=== PATIENT | male | born 1945 | race Caucasian/White ===

== ENCOUNTER 2017-01-02 13:04 | Emergency (ER) | payer BC ==
--- NOTE | 2017-01-02 13:37 | Emergency Department Record ---
History of Present Illness - General Chief complaint: Male Urogenital Problem Stated complaint: testicular pain/BLEEDING Time Seen by Provider: 01/02/17 13:36 Source: Patient, Family Mode of Arrival: Wheelchair Limitations: No limitations - History of Present Illness Initial comments: The patient is here due to due to his sister noticing blood on his underwear when she was cleaning him up after a bath today. She is not sure where it came from. The patient denies any AP, rectal pain, or dysuria but states his urine is very strong. He recently has Lithotrypsy done for some kidney stones. The patient has a half-way problem with ambulating and just sits in a chair at home and does not move. He did fall onto his buttocks 2 days ago but did not get hurt. The sister thinks his scrotum could be an issue due to it being mildly erythematous presently. MD Complaint: Other Onset/Timin Location: Left testicle Radiation: None Severity: Mild Severity scale (1-10): 2 Quality: Burning Consistency: Constant Improves with: None Worsens with: None Reports: Blood in urine - Related Data Home Medications Medication Instructions Recorded Confirmed Last Taken Metformin HCl [Glucophage] 500 mg PO BID 02/17/15 01/02/17 01/02/17 Lisinopril [Lisinopril] 2.5 mg PO DAILY 01/02/17 01/02/17 01/02/17 Lovastatin [Lovastatin] 10 mg PO DAILY 01/02/17 01/02/17 01/02/17 Metoprolol Tartrate [Metoprolol 25 mg PO DAILY 01/02/17 01/02/17 01/02/17 Tartrate] Previous Rx's Medication Instructions Recorded Ciprofloxacin HCl [Cipro] 1 tab PO Q12H #20 tab 01/02/17 Allergies Allergy/AdvReac Type Severity Reaction Status Date / Time NO KNOWN DRUG ALLERGY Allergy no Uncoded 01/02/17 13:31 allergies Travel Screening - Travel/Exposure Within Last 30 Days Have you traveled within the last 30 days?: No Review of Systems Constitutional: Denies: Chills, Fever Eyes: Denies: Eye discharge ENT: Denies: Congestion, Other Respiratory: Denies: Dyspnea Past Medical History - SOCIAL HISTORY Smoking Status: Never smoker Alcohol Use: None Drug Use: None - RESPIRATORY Hx Respiratory Disorders: Yes Hx Sleep Apnea: Yes Hx of CPAP: Yes - CARDIOVASCULAR Hx Cardio Disorders: Yes Hx Irregular Heartbeat: Yes - NEURO Hx Neuro Disorders: Yes Hx TIA: Yes - GI Hx GI Disorders: No - Hx Genitourinary Disorders: Yes Hx Kidney Stones: Yes - ENDOCRINE Hx Endocrine Disorders: Yes Hx Diabetes: Yes - MUSCULOSKELETAL Hx Musculoskeletal Disorders: No - PSYCH Hx Psych Problems: No - HEMATOLOGY/ONCOLOGY Hx Hematology/Oncology Disorders: No Family Medical History Any Significant Family History?: No Physical Exam - General General Appearance: Alert, Oriented x3, Cooperative, No acute distress - Head Head exam: Atraumatic, Normocephalic, Normal inspection - Eye Eye exam: Normal appearance, PERRL - Neck Neck exam: Normal inspection, Full ROM. negative: Tenderness - Respiratory Respiratory exam: Normal lung sounds bilaterally. negative: Respiratory distress - Cardiovascular Cardiovascular Exam: Regular rate, Normal rhythm, Normal heart sounds - GI/Abdominal GI/Abdominal exam: Soft, Normal bowel sounds. negative: Guarding, Rebound, Rigid, Tenderness - Rectal Rectal exam: Heme (-) stool, Normal rectal tone. negative: Black stool, Bloody stool, Fecal impaction, Hemorrhoids, Tenderness - exam: Circumcision, Testicular tenderness (L very mildly but no edema.), Other (There are no skin lesions causing bleeding at this time.). negative: Normal inspection (The scrotum is very mildly inflamed from yeast. The patient has a yeast infection thru his lower abdominal pannus and genital area. His sister states she does not clean him there during there bath and the patient is supposed to clean himself in his privates but he does not do that.), Scrotal swelling, Urethral discharge Course Vital Signs 01/02/17 13:23 Temperature 98.1 F Pulse Rate 87 Respiratory 20 Rate Blood Pressure 124/73 Pulse Ox 99 - Reevaluation(s) Reevaluation #1: The patient is doing very well. He denies any pain or discomfort. I did explain the results to the patient and sister. There does not seem to be any ureter stone or hydro so we will discharge the patient to home on an oral antibiotic. 01/02/17 16:02 Medical Decision Making - Data Complexity MDM Data: Labs Ordered and/or Reviewed, X-Ray Ordered and/or Reviewed - Lab Data Result diagrams: 01/02/17 14:14 01/02/17 14:14 - Radiology Data Radiology results: Report reviewed (CT: No hydro or ureter stone) Disposition Disposition: Discharge Clinical Impression: UTI (urinary tract infection) Qualifiers: Urinary tract infection type: site unspecified Hematuria presence: with hematuria Qualified Code(s): N39.0 - Urinary tract infection, site not specified Disposition: Home, Self-Care Condition: (1) Good Instructions: Urinary Tract Infection in Men (ED) Additional Instructions: Please drink plenty of fluids and take the Cipro as directed. Please see your PCP early next week for recheck. Please correct the hygiene issues that we discussed and use your home antifungal powder as directed. Return to the ER for any pain, fever, or vomiting. Prescriptions: Ciprofloxacin HCl [Cipro] 1 tab PO Q12H #20 tab Forms: Patient Portal Access Time of Disposition: 16:06
[2017-01-02] MEDS ORDERED: 0.9 % SODIUM CHLORIDE 1,000 ML BAG IV ONE (13:50)
[2017-01-02 14:19] LABS: BASO % 0.2 % (0-6); EOS % 1.1 % (0-6); GRAN % 77.2 % (47-80); HEMATOCRIT 40.3 % (42.0-52.0); LYMPH % 12.8 % (16-45); MEAN CORPUSCULAR HEMOGLOBIN 27.4 pg (27-33); MEAN CORPUSCULAR HGB CONC 32.3 g/dl (32-36); MEAN PLATELET VOLUME 10.3 fl (7.4-10.4); MONO % 8.7 % (0-9); PLATELET COUNT 294 K/uL (130-400); RED BLOOD COUNT 4.74 M/uL (4.40-5.70); RED CELL DISTRIBUTION WIDTH 14.1 % (11.5-14.5)
[2017-01-02 14:21] LABS: URINE APPEARANCE CLEAR; URINE BILIRUBIN NEGATIVE (NEGATIVE); URINE BLOOD LARGE (NEGATIVE); URINE COLOR YELLOW; URINE GLUCOSE (UA) NEGATIVE (NEGATIVE); URINE KETONE NEGATIVE (NEGATIVE); URINE LEUKOCYTE ESTERASE MODERATE (NEGATIVE); URINE NITRITE NEGATIVE (NEGATIVE); URINE UROBILINOGEN 0.2 E.U./dL (0.20 - 1.00)
[2017-01-02 14:30] LABS: URINE EPITHELIAL CELLS NONE SEEN (FEW)
[2017-01-02 14:31] LABS: URINE BACTERIA 1+
[2017-01-02 14:33] LABS: ANION GAP 12.5 (7-16); CARBON DIOXIDE 26.5 mmol/L (22-30); CREATININE 1.6 mg/dL (0.66-1.25)
[2017-01-02] MEDS ORDERED: CIPROFLOXACIN HCL 500 MG TABLET PO ONE (14:41)
[2017-01-02] MEDS ORDERED: CIPROFLOXACIN LACTATE/D5W 400 MG in DEXTROSE 1 BAG IVPB ONE (14:43)
== END 2017-01-02 17:04 | disposition home or self-care (01) ==
LOC: ER 13:04
DX: N39.0 Urinary tract infection, site not specified (principal); R31.0 Gross hematuria; B37.49 Other urogenital candidiasis; E11.9 Type 2 diabetes mellitus without complications; Z79.84 Long term (current) use of oral hypoglycemic drugs; I10 Essential (primary) hypertension
CPT/HCPCS: 74176; 80048; 81001; 85025; 96365; 96366; 99284; J7030

== ENCOUNTER 2017-05-31 14:08 | Observation (INO) | payer BC ==
[2017-05-31 15:18] LABS: HEMATOCRIT 40.6 % (42.0-52.0); HEMOGLOBIN 13.5 gm/dl (14.0-18.0); MEAN CELL VOLUME 83.7 fl (81-97); MEAN CORPUSCULAR HEMOGLOBIN 27.8 pg (27-33); MEAN CORPUSCULAR HGB CONC 33.3 g/dl (32-36); MEAN PLATELET VOLUME 11.3 fl (7.4-10.4); PLATELET COUNT 269 K/uL (130-400); RED BLOOD COUNT 4.85 M/uL (4.40-5.70); RED CELL DISTRIBUTION WIDTH 14.5 % (11.5-14.5); WHITE BLOOD COUNT W/O DIFF 14.2 K/uL (4.2-12.2)
--- NOTE | 2017-05-31 15:26 | Emergency Department Record ---
History of Present Illness - General Chief Complaint: Fall Injury Stated Complaint: FALL INJURY Time Seen by Provider: 05/31/17 14:24 Source: Patient, Family Mode of Arrival: Ambulatory Limitations: Physical limitation - History of Present Illness Initial Comments: pt fell and could not get back up. pt is severely .deconditioned. pt has fallen twice in the last 2 days. pt has a hx of freq falls due to deconditioning. pt states he has pain in his l hip Complaint: Fall Onset/Timin -: Hour(s) Fall From: Standing When Fall Occurred: 4-6 hours [employer] Fall Witnessed: No Place Fall Occurred: Home Loss of Consciousness: None Prolonged Down Time?: Yes Symptoms Prior to Fall: None Location - Extremities: Left: Thigh Severity: Moderate Severity scale (1-10): 3 Quality: Aching Associated Symptoms: Weakness - Aly Coma Scale Eye Response: (4) Open spontaneously Motor Response: (6) Obeys commands Verbal Response: (5) Oriented Aly Total: 15 - Related Data Allergies Allergy/AdvReac Type Severity Reaction Status Date / Time NO KNOWN DRUG ALLERGY Allergy no Uncoded 05/31/17 14:31 allergies Travel Screening - Travel/Exposure Within Last 30 Days Have you traveled within the last 30 days?: No - Travel/Exposure Within Last Year Have you traveled outside the [place] in the last year?: No - Additonal Travel Details Have you been exposed to anyone with a communicable illness?: No - Travel Symptoms Symptom Screening: None Review of Systems Reviewed: No additional complaints except as noted below Constitutional: Reports: As per HPI. Denies: Chills, Fever, Malaise, Night sweats, Weakness, Weight change Eyes: Reports: As per HPI. Denies: Eye discharge, Eye pain, Photophobia, Vision change ENT: Reports: As per HPI. Denies: Congestion, Dental pain, Ear pain, Epistaxis , Hearing loss, Throat pain Respiratory: Reports: As per HPI. Denies: Cough, Dyspnea, Hemoptysis, Stridor, Wheezes Cardiovascular: Reports: As per HPI. Denies: Arrhythmia, Chest pain, Dyspnea on exertion, Edema, Murmurs, Orthopnea, Palpitations, Paroxysmal nocturnal dyspnea, Rheumatic Fever, Syncope Endocrine: Reports: As per HPI. Denies: Fatigue, Heat or cold intolerance, Polydipsia, Polyuria Gastrointestinal: Reports: As per HPI. Denies: Abdominal pain, Constipation, Diarrhea, Hematemesis, Hematochezia, Melena, Nausea, Vomiting Genitourinary: Reports: As per HPI. Denies: Dysuria, Frequency, Hematuria, Incontinence, Retention, Testicular pain, Testicular mass, Urgency Musculoskeletal: Reports: As per HPI. Denies: Arthralgia, Back pain, Gout, Joint swelling, Myalgia, Neck pain Skin: Reports: As per HPI. Denies: Bruising, Change in color, Change in hair/ nails, Lesions, Pruritus, Rash Neurological: Reports: As per HPI. Denies: Abnormal gait, Confusion, Headache, Numbness, Paresthesias, Seizure, Tingling, Tremors, Vertigo, Weakness Psychiatric: Reports: As per HPI. Denies: Anxiety, Auditory hallucinations, Depression, Homicidal thoughts, Suicidal thoughts, Visual hallucinations Hematological/Lymphatic: Reports: As per HPI. Denies: Anemia, Blood Clots, Easy bleeding, Easy bruising, Swollen glands Past Medical History - SOCIAL HISTORY Smoking Status: Never smoker Alcohol Use: None Drug Use: None - RESPIRATORY Hx Respiratory Disorders: Yes Hx Sleep Apnea: Yes Hx of CPAP: Yes - CARDIOVASCULAR Hx Cardio Disorders: Yes Hx Irregular Heartbeat: Yes - NEURO Hx Neuro Disorders: Yes Hx TIA: Yes - GI Hx GI Disorders: No - Hx Genitourinary Disorders: Yes Hx Kidney Stones: Yes - ENDOCRINE Hx Endocrine Disorders: Yes Hx Diabetes: Yes - MUSCULOSKELETAL Hx Musculoskeletal Disorders: No Comment:: deconditioning - PSYCH Hx Psych Problems: No - HEMATOLOGY/ONCOLOGY Hx Hematology/Oncology Disorders: No Family Medical History Any Significant Family History?: Yes Physical Exam - General General Appearance: Alert, Oriented x3, Cooperative, Mild distress - Head Head exam: Normal inspection - Eye Eye exam: Normal appearance, PERRL, EOMI Pupils: Normal accommodation - ENT ENT exam: Normal exam, Mucous membranes moist, Normal external ear exam, Normal orophraynx Ear exam: Normal external inspection. negative: External canal tenderness Nasal Exam: Normal inspection. negative: Discharge, Sinus tenderness Mouth exam: Normal external inspection, Tongue normal Teeth exam: Normal inspection. negative: Dental caries Throat exam: Normal inspection. negative: Tonsillar erythema, Tonsillar exudate - Neck Neck exam: Normal inspection, Full ROM. negative: Tenderness - Respiratory Respiratory exam: Normal lung sounds bilaterally. negative: Respiratory distress - Cardiovascular Cardiovascular Exam: Regular rate, Normal rhythm, Normal heart sounds - GI/Abdominal GI/Abdominal exam: Soft, Normal bowel sounds. negative: Tenderness - Rectal Rectal exam: Deferred - exam: Deferred - Extremities Extremities exam: Normal inspection, Full ROM, Normal capillary refill. negative: Tenderness - Back Back exam: Reports: Normal inspection, Full ROM. Denies: Muscle spasm, Rash noted, Tenderness - Neurological Neurological exam: Alert, CN II-XII intact, Normal gait, Oriented X3 - Psychiatric Psychiatric exam: Normal affect, Normal mood - Skin Skin exam: Dry, Intact, Normal color, Warm Course Vital Signs 05/31/17 14:15 Temperature 98.5 F Pulse Rate 56 L Respiratory 18 Rate Blood Pressure 141/72 Pulse Ox 98 Medical Decision Making - Lab Data Result diagrams: 05/31/17 13:55 05/31/17 13:55 Lab Results 05/31/17 Range/Units 14:41 POC Glucose 130 H (70-110) mg/dL Disposition Disposition: Admit Clinical Impression: Severe muscle deconditioning, Frequent falls UTI (urinary tract infection) Qualifiers: Urinary tract infection type: urethritis Qualified Code(s): N34.2 - Other urethritis Disposition: Still a Patient at [facility] Decision to Admit: Admit from ER Decision to Admit Date: 05/31/17 Decision to Admit Time: 18:02 Forms: Patient Portal Access Quality - Quality Measures Quality Measures: N/A - Blood Pressure Screening Does Patient Have Any of the Following: Active Dx of HTN Blood Pressure Classification: Hypertensive Reading Systolic Measurement: 141 Diastolic Measurement: 72 Screening for High Blood Pressure: Patient Exclusion, Hx of HTN [[id number]]
[2017-05-31 15:29] LABS: ALB/GLOB RATIO 1.3 (1.1-1.8); ALBUMIN 4.3 gm/dL (3.5-5.0); ALKALINE PHOSPHATASE 75 U/L (38-126); ALT/SGPT 43 U/L (21-72); ANION GAP 9.8 (7-16); AST/SGOT 44 U/L (17-59); BILIRUBIN,TOTAL 0.88 mg/dL (0.2-1.3); BLOOD UREA NITROGEN 16 mg/dL (9-20); CARBON DIOXIDE 27.2 mmol/L (22-30); CREATINE PHOSPHOKINASE 898 U/L (55-170); CREATININE 1.2 mg/dL (0.66-1.25); EST GLOMERULAR FILTRATION RATE > 60 ml/min; GLUCOSE,RANDOM 137 mg/dL (70-110); TOTAL PROTEIN 7.6 gm/dL (6.3-8.2)
[2017-05-31 17:43] LABS: URINE APPEARANCE SL CLOUDY; URINE BILIRUBIN NEGATIVE (NEGATIVE); URINE BLOOD LARGE (NEGATIVE); URINE COLOR YELLOW; URINE GLUCOSE (UA) NEGATIVE (NEGATIVE); URINE KETONE TRACE (NEGATIVE); URINE LEUKOCYTE ESTERASE MODERATE (NEGATIVE); URINE NITRITE NEGATIVE (NEGATIVE); URINE UROBILINOGEN 0.2 E.U./dL (0.20 - 1.00)
[2017-05-31 17:51] LABS: URINE BACTERIA 2+; URINE RBC 21 - 35 (NONE SEEN); URINE SQUAMOUS EPITHELIAL CELL 0 - 2 /hpf; URINE WBC >50 (0-2/hpf); URINE YEAST 2+
[2017-05-31] MEDS ORDERED: CIPROFLOXACIN LACTATE/D5W 400 MG/200 ML BAG IVPB ONE (17:57)
[2017-05-31] MEDS: 0.9 % SODIUM CHLORIDE 1000ML 1,000 ML IV PRN (18:27)
[2017-05-31] MEDS ORDERED: FLU VAC QS 2017-18 (INPT, 6MO+) 60MCG/0.5ML IM ONE (19:11)
[2017-05-31] MEDS ORDERED: 0.9 % SODIUM CHLORIDE 1000ML 1,000 ML IV PRN (19:11)
[2017-05-31] MEDS ORDERED: CIPROFLOXACIN LACTATE/D5W 400 MG/200 ML BAG IVPB SCH (19:11)
[2017-05-31] MEDS: ACETAMINOPHEN 500 MG TABLET PO PRN (20:42)
[2017-06-01] MEDS: 0.9 % SODIUM CHLORIDE 1000ML 1,000 ML IV PRN (01:48)
--- NOTE | 2017-06-01 05:56 | History & Physical ---
History of Present Illness - Date of Service Date of Service for History & Physical: 06/01/17 - History of Present Illness Admitting Diagnosis: uti, frequent falls, severe deconditioning History of Present Illness: 71 yo male admitted for deconditioning and UTI. PMHx of frequent falls, type 2 DM, HTN, h/o renal stones, and obesity. Patient presented to our ED by EMS after a fall at home. States he stood up to walk from the kitchen to the living room. He began to feel dizzy and fell side ways. He states his sister had come over and contacted EMS. Upon presentation , VSS. WBC 14.2, neut 81, glucose 137, creatine kinase 898. UA: + blood, mod leuks, 2+ bacteria. Urine culture pending. Hip xray: NAP. Patient was started on IVFs and IV Cipro for UTI. Admitted for further medical management. 06/01/17- History obtained from patient who is A&O to person, place and date. He states he feels well this morning. Continues to feel pretty weak. Denies dizziness, lightheadedness, fever, chills, cough, dysuria, abdominal pain, constipation, diarrhea, joint pain, headache, cp, sob, or decreased appetite. He admits to some LBP since his fall, though states he typically has some of this. He's tolerating meals. States he's using the urinal as he's not strong enough to ambulate to the rest room. Typically uses a walker at home. Has had [facility] services, though nursing states patient failed this as he was not participating. Patient lives alone though it sounds like he has a very supportive family. He reports h/o renal stones, s/p lithotripsy x 5. Dr. Negron is his urologist. Patient is retired. Denies any recent hospitalizations. According to nursing staff, family is interested in prison care facility for patient. PCP: Dr. Balderrama Travel Screening - Travel/Exposure Within Last 30 Days Have you traveled within the last 30 days?: No - Travel/Exposure Within Last Year Have you traveled outside the [place] in the last year?: No - Additonal Travel Details Have you been exposed to anyone with a communicable illness?: No - Travel Symptoms Symptom Screening: None Review of Systems Constitutional: Reports: As per HPI, Weakness. Denies: Chills, Fever, Malaise, Night sweats, Weight change Eyes: Reports: As per HPI. Denies: Eye discharge, Eye pain, Photophobia, Vision change ENT: Reports: As per HPI. Denies: Congestion, Dental pain, Ear pain, Epistaxis , Hearing loss, Throat pain Respiratory: Reports: As per HPI. Denies: Cough, Dyspnea, Hemoptysis, Stridor, Wheezes Cardiovascular: Reports: As per HPI. Denies: Arrhythmia, Chest pain, Dyspnea on exertion, Edema, Murmurs, Orthopnea, Palpitations, Paroxysmal nocturnal dyspnea, Rheumatic Fever, Syncope Endocrine: Reports: As per HPI. Denies: Fatigue, Heat or cold intolerance, Polydipsia, Polyuria Gastrointestinal: Reports: As per HPI. Denies: Abdominal pain, Constipation, Diarrhea, Hematemesis, Hematochezia, Melena, Nausea, Vomiting Genitourinary: Reports: As per HPI. Denies: Dysuria, Frequency, Hematuria, Incontinence, Retention, Testicular pain, Testicular mass, Urgency Musculoskeletal: Reports: As per HPI, Back pain (low, chronic). Denies: Arthralgia, Gout, Joint swelling, Myalgia, Neck pain Skin: Reports: As per HPI. Denies: Bruising, Change in color, Change in hair/ nails, Lesions, Pruritus, Rash Neurological: Reports: As per HPI. Denies: Abnormal gait, Confusion, Headache, Numbness, Paresthesias, Seizure, Tingling, Tremors, Vertigo, Weakness Psychiatric: Reports: As per HPI. Denies: Anxiety, Auditory hallucinations, Depression, Homicidal thoughts, Suicidal thoughts, Visual hallucinations Hematological/Lymphatic: Reports: As per HPI. Denies: Anemia, Blood Clots, Easy bleeding, Easy bruising, Swollen glands Past Medical History - SOCIAL HISTORY Smoking Status: Never smoker Alcohol Use: None Drug Use: None - RESPIRATORY Hx Respiratory Disorders: Yes Hx Sleep Apnea: Yes Hx of CPAP: Yes - CARDIOVASCULAR Hx Cardio Disorders: Yes Hx Irregular Heartbeat: Yes - NEURO Hx Neuro Disorders: Yes Hx TIA: Yes - GI Hx GI Disorders: Yes Hx Reflux: Yes (takes otc med, omeprazole) - Hx Genitourinary Disorders: Yes Hx Kidney Stones: Yes (lithotripsy) Hx UTI: Yes - ENDOCRINE Hx Endocrine Disorders: Yes Hx Diabetes: Yes (oral med) - MUSCULOSKELETAL Hx Musculoskeletal Disorders: No Comment:: pt does not move, sits at home - PSYCH Hx Psych Problems: No - HEMATOLOGY/ONCOLOGY Hx Hematology/Oncology Disorders: No Family Medical History Any Significant Family History?: Yes Hx Heart Disease: Father, Mother H&P Meds/Allergies - Allergies Allergies: Allergies Allergy/AdvReac Type Severity Reaction Status Date / Time NO KNOWN DRUG ALLERGY Allergy no Uncoded 05/31/17 14:31 allergies - Active Medications Active Medications: Current Medications Acetaminophen (Tylenol 500mg Tab) 1,000 mg PO Q6H PRN PRN Reason: PAIN/TEMP Last Admin: 05/31/17 20:42 Dose: 1,000 mg Sodium Chloride () 1,000 mls @ 125 mls/hr IV .Q8H PRN PRN Reason: LARGE VOLUME IV Last Admin: 06/01/17 01:48 Dose: 125 mls/hr Sodium Chloride () 1,000 mls @ 125 mls/hr IV .Q8H PRN PRN Reason: LARGE VOLUME IV Ciprofloxacin Lactate (Cipro) 400 mg in 200 mls @ 200 mls/hr IVPB Q12H [facility] Stop: 06/06/17 06:01 Lisinopril (Zestril) 2.5 mg PO DAILY [facility] Metformin HCl (Glucophage Ir) 500 mg PO DAILYWM [facility] Metoprolol Tartrate (Lopressor) 25 mg PO DAILY [facility] Simvastatin (Zocor) 5 mg PO QHS [facility] Physical Exam - Vital Signs Vital Signs: Vital Signs - Last 24 Hrs Temp Pulse Resp BP Pulse Ox 05/31/17 20:48 60 16 05/31/17 20:00 98.3 F 75 20 121/58 97 05/31/17 19:05 98.8 F 83 20 131/68 96 - General General Appearance: Alert, Oriented x3, Cooperative, No acute distress Limitations: Physical limitation - Head Head exam: Atraumatic, Normocephalic, Normal inspection - Eye Eye exam: Normal appearance, PERRL, EOMI Pupils: Normal accommodation - ENT ENT exam: Normal exam, Mucous membranes moist, Normal external ear exam, Normal orophraynx Ear exam: Normal external inspection. negative: External canal tenderness Nasal Exam: Normal inspection. negative: Discharge, Sinus tenderness Mouth exam: Normal external inspection, Tongue normal Teeth exam: Normal inspection. negative: Dental caries Throat exam: Normal inspection. negative: Tonsillar erythema, Tonsillar exudate - Neck Neck exam: Normal inspection, Full ROM. negative: Tenderness - Respiratory Respiratory exam: Normal lung sounds bilaterally. negative: Respiratory distress - Cardiovascular Cardiovascular Exam: Regular rate, Normal rhythm, Normal heart sounds - GI/Abdominal GI/Abdominal exam: Soft, Normal bowel sounds. negative: Tenderness - Rectal Rectal exam: Deferred - exam: Deferred - Extremities Extremities exam: Normal inspection, Full ROM, Normal capillary refill. negative: Tenderness - Back Back exam: Reports: Normal inspection. Denies: CVA tenderness (R), CVA tenderness (L), Muscle spasm, Paraspinal tenderness, Rash noted, Tenderness - Neurological Neurological exam: Alert, CN II-XII intact, Normal gait, Oriented X3 - Psychiatric Psychiatric exam: Normal affect, Normal mood - Skin Skin exam: Dry, Intact, Normal color, Warm Results - Labs Result Diagrams: 06/01/17 06:15 05/31/17 13:55 VTE H&P Assessment - Risk for VTE Risk for VTE: Yes Risk Level: Moderate Risk Assessment Date: 06/01/17 Risk Assessment Time: 09:00 VTE Orders Placed or Will Be Placed: Yes Plan - Inpatient Certification Inpatient Certification: Admit to inpatient care: Based on my medical assessment, after consideration of patient's risk factors (age, co-morbidities and patient presenting symptoms and acuity), I expect that this patient will remain in the hospital greater than or equal to two midnights and that the services needed warrant inpatient care because: Patient Risk Factors: [weakness, s/p fall, elevated cr kinase, low back pain, UTI, decreased ambulation] Estimated length of stay: [3 nights] The patient may reasonably be expected to be discharged or transferred to a hospital within 96 hours after admission to [facility]. Services needed: [IVF, IV antibiotics, assistance with ambulation, PT/OT eval, lab monitoring] Post hospital care (if known): [moth exterminator care vs. rehab facility] I certify that my determination is in accordance with my understanding of Medicare requirements for reasonable and necessary inpatient services. 06/01/17 08:55 - Detailed Diagnosis and Plan (1) UTI (urinary tract infection) Current Visit: Yes Status: Acute Qualifiers: Urinary tract infection type: urethritis Qualified Code(s): N34.2 - Other urethritis Base Code: N39.0 - URINARY TRACT INFECTION, SITE NOT SPECIFIED Comment: : UA: mod leuks, blood, 2+ bacteria - afebrile - wbc normalized - urine culture pending - IVF - IV Cipro (2) Severe muscle deconditioning Current Visit: Yes Status: Acute Base Code: R29.898 - OTH SYMPTOMS AND SIGNS INVOLVING THE MUSCULOSKELETAL SYSTEM Comment: 06/01/17- lack of phy activity vs. infection vs. other? - IV Cipro for UTI - Urine culture pending - PT/OT eval - IVF to help with re hydration - social work consult- determine proper placement for patient- [facility] vs. LTC. (3) DVT prophylaxis Current Visit: Yes Status: Acute Base Code: [id number] - Comment: 06/01/17- low-mod risk. SCD's WIB (4) Frequent falls Current Visit: Yes Status: Acute Base Code: R29.6 - REPEATED FALLS Comment : 06/01/17: Infection vs. muslce deconditioning vs. other? - IV Cipro for UTI - Urine culture pending - PT/OT eval - IVF to help with re hydration (5) DNR (do not resuscitate) Current Visit: Yes Status: Acute Base Code: Z66 - DO NOT RESUSCITATE Comment: 06/01/17- pt is DNR (6) Diabetes Current Visit: Yes Status: Acute Base Code: E11.9 - TYPE 2 DIABETES MELLITUS WITHOUT COMPLICATIONS Comment: 06/01/17- continue home meds - monitor BS prior to meals
[2017-06-01] MEDS: CIPROFLOXACIN LACTATE/D5W 400 MG/200 ML BAG IVPB SCH ×2 (06:19→18:03)
[2017-06-01 06:32] LABS: BASO % 0.5 % (0-6); EOS % 2.6 % (0-6); GRAN % 63.6 % (47-80); HEMATOCRIT 34.3 % (42.0-52.0); HEMOGLOBIN 11.4 gm/dl (14.0-18.0); LYMPH % 23.3 % (16-45); MEAN CELL VOLUME 84.7 fl (81-97); MEAN CORPUSCULAR HEMOGLOBIN 28.1 pg (27-33); MEAN CORPUSCULAR HGB CONC 33.2 g/dl (32-36); MEAN PLATELET VOLUME 10.6 fl (7.4-10.4); PLATELET COUNT 216 K/uL (130-400); RED BLOOD COUNT 4.05 M/uL (4.40-5.70); RED CELL DISTRIBUTION WIDTH 14.4 % (11.5-14.5); WHITE BLOOD COUNT W/O DIFF 8.1 K/uL (4.2-12.2)
[2017-06-01] MEDS: ACETAMINOPHEN 500 MG TABLET PO PRN ×2 (07:53→18:07)
[2017-06-01] MEDS: METFORMIN 500 MG TABLET PO SCH (08:42)
[2017-06-01] MEDS ORDERED: 0.9 % SODIUM CHLORIDE 1000ML 1,000 ML IV PRN (09:03)
[2017-06-01] MEDS: LISINOPRIL 5 MG TABLET PO SCH (09:05)
[2017-06-01] MEDS: METOPROLOL TART 25 MG TABLET PO SCH (09:06)
[2017-06-01] MEDS ORDERED: METOPROLOL TART 25 MG TABLET PO SCH (10:00)
[2017-06-01] MEDS ORDERED: SIMVASTATIN 5 MG TABLET PO SCH (22:00)
--- NOTE | 2017-06-01 22:12 | RADIOLOGY REPORT ---
EXAM: HIP,UNILAT, 2-3 VIEW LEFT HISTORY: PATIENT FELL TODAY, LEFT HIP PAIN. TECHNIQUE: Three views. COMPARISON: None. FINDINGS: No left hip fracture seen. No destructive lesion seen. Left hip joint space is fairly well maintained. The bones are diffusely osteopenic. There is no pelvic fracture identified. The right hip joint space is unremarkable and symmetric with the left. There are arthritic changes in the SI joints bilaterally. IMPRESSION: 1. NO FRACTURE OR ACUTE OSSEOUS ABNORMALITY. 2. BONES ARE DIFFUSELY OSTEOPENIC. 3. ARTHRITIC CHANGES IN THE SI JOINTS. JOB NUMBER: [id number] [facility]
[2017-06-01] MEDS: SIMETHICONE 80 MG TAB.CHEW PO SCH ×2 (22:13→22:17)
[2017-06-02] MEDS: ACETAMINOPHEN 500 MG TABLET PO PRN ×2 (05:07→15:08)
[2017-06-02] MEDS: CIPROFLOXACIN LACTATE/D5W 400 MG/200 ML BAG IVPB SCH (06:05)
[2017-06-02] MEDS: METOPROLOL TART 25 MG TABLET PO SCH (09:30)
[2017-06-02] MEDS: LISINOPRIL 5 MG TABLET PO SCH (09:30)
[2017-06-02] MEDS: SIMETHICONE 80 MG TAB.CHEW PO SCH ×4 (09:30→22:19)
[2017-06-02] MEDS: METFORMIN 500 MG TABLET PO SCH (09:36)
--- NOTE | 2017-06-02 09:45 | Rehab Evaluation ---
Patient Information - Patient Information Diagnosis: UTI, frequent falls, severe deconditioning Ordered Treatment: OT Evaluate and Treat Status: Initial Evaluation Surgery: No Past Medical/Surgical Hx: PAST MEDICAL/SURGICAL HISTORY Past Surgical History fatty tumor removed from left shoulder lithotripsy x5 PMH - Respiratory Hx Respiratory Disorders Yes Hx Sleep Apnea Yes Hx of CPAP Yes PMH - Cardiovascular Hx Cardiovascular Disorders Yes Hx Irregular Heartbeat Yes Hx Transient Ischemic Attacks Yes (TIA) PMH - Neuro Hx Neurological Disorders Yes Hx Transient Ischemic Attacks Yes (TIA) PMH - GI Hx Gastrointestinal Disorders Yes Hx Gastroesophageal Reflux Yes: takes otc med, omeprazole PMH - Hx Genitourinary Disorders Yes Hx Kidney Stones Yes: lithotripsy Hx Urinary Tract Infection Yes PMH - Endocrine Hx Endocrine Disorders Yes Hx Diabetes Yes: oral med PMH - Musculoskeletal Hx Musculoskeletal Disorders No Comment: pt does not move, sits at home PMH - Psych Hx Psychiatric Problems No PMH - Hematology/Oncology Hx Hematology/Oncology No Disorders Premorbid Status: Detail (Pt lives alone in a 1 story house, 5-6 steps with handrailing and a ramp at the entrance. Pt has a walk in shower with a seat and grab bars, an elevated "larger" toilet seat with grab bars and usually ambulates with a 2 wheeled walker. He has an aid come 3 days each week to assist him with showering and dressing, he is able to prepare meals in the microwave. Helping hands completes home mgmt and his sister does his shopping.) Social History: Detail (Pt reports his sister, December lives next door.) Precautions: [place], Fall, Other (isolation) - Time With Patient Total Time Spent With Patient (Min): 30 Treatment Procedures: Detail (OT eval low complexity) Subjective Information - Subjective Information Per Patient Objective Data - Pain Pain Present: No - Mental Status Patient Orientation: Oriented x3 - Visual Perception Appears within normal limits for therapeutic activities (Pt wears glasses at all times.) - ROM Not within normal limits (Nikita shoulder flexion limited to approx. 90 degrees, nikita elbow, wrist and hand AROM WNL.) - Strength/Tone Not within normal limits (Nikita shoulder flexion 4/5, nikita elbow, wrist and hand strength 5/5) - Coordination Appears within normal limits for therapeutic activities - Bed Mobility Needs Assist (Sit to supine with max assist to lift legs into bed, pt able to use trapeze to partially scoot up in bed.) - Transfers Needs Assist (Max assist x 2 for sit to stand to walker.) - Balance Balance Sitting: Good Balance Standing: Fair - Sensation Intact - Gait Detail (Pt able to take several small steps from commode to EOB with walker and CG assist.) - ADL's/IADL's Detail (Pt requiring total assist for toileting hygiene. Other ADLs max assist per nursing.) Therapy Assessment - Therapy Assessment Detail (Pt presents with significantly impaired functional mobility, decreased shoulder function, poor endurance and decreased Ind with self cares.) Problem List - Problem List Occupational Therapy Problem List: Detail (1. Decreased Ind with sit to stand transfers. 2. Decreased Ind with self care activities 3. Decreased endurance needed for safe ADLs.) Goals - Goals Occupational Therapy Goals: 1. Pt will be Ind with sit to stand from elevated surfaces. 2. Pt will be Ind with UE bathing/dressing 3. Pt will improve endurance needed for safe return home. Prognosis - Prognosis Good Plan - Plan Occupational Therapy Plan: OT 2-4 days per week to address endurance, functional mobility, self cares. Pt would benefit from IP rehab stay to maximize his safety and Ind with functional mobility and ADLs.
--- NOTE | 2017-06-02 09:49 | Rehab Evaluation ---
Patient Information - Patient Information Diagnosis: UTI, frequent fall, deconditioning Ordered Treatment: PT Evaluate and Treat Status: Initial Evaluation History: Detail (The patient arrived in ED on 05/31/17 after falling and not being able to get up.) Past Medical/Surgical Hx: PAST MEDICAL/SURGICAL HISTORY Past Surgical History fatty tumor removed from left shoulder lithotripsy x5 PMH - Respiratory Hx Respiratory Disorders Yes Hx Sleep Apnea Yes Hx of CPAP Yes PMH - Cardiovascular Hx Cardiovascular Disorders Yes Hx Irregular Heartbeat Yes Hx Transient Ischemic Attacks Yes (TIA) PMH - Neuro Hx Neurological Disorders Yes Hx Transient Ischemic Attacks Yes (TIA) PMH - GI Hx Gastrointestinal Disorders Yes Hx Gastroesophageal Reflux Yes: takes otc med, omeprazole PMH - Hx Genitourinary Disorders Yes Hx Kidney Stones Yes: lithotripsy Hx Urinary Tract Infection Yes PMH - Endocrine Hx Endocrine Disorders Yes Hx Diabetes Yes: oral med PMH - Musculoskeletal Hx Musculoskeletal Disorders No Comment: pt does not move, sits at home PMH - Psych Hx Psychiatric Problems No PMH - Hematology/Oncology Hx Hematology/Oncology No Disorders Premorbid Status: Detail (per his report the patient was ambulating with a wheeled walker household distances and using a wheelchair when going out for appointments. The patient previously received Rehab at [facility].) Social History: Detail (The patient lives alone in a one story home with a ramp at the enterance along with 5 or 6 steps with handrailings. The patient's bathroom is equipped with a walk-in shower with a seat and grab bars and an elevated toilet with handrailings. The patient had assistance with bathing and dressing ( 3 times a week ). The patient was cooking microwave meals and had assistance with all collections assistant. The patient has a two wheeled walker, hospital bed and manual wheelchair.) Precautions: [place], Fall, Other (contact) - Time With Patient Total Time Spent With Patient (Min): 30 Treatment Procedures: Detail (Initial Evaluation.) Subjective Information - Subjective Information Per Patient (The patient had no complaints of pain. The patient had complaints of LE weakness.) Objective Data - Mental Status Patient Orientation: Oriented x3 - ROM Not within normal limits (LE AROM was WFL except for L knee extension aprox -10 degrees.) - Strength/Tone Not within normal limits (The patient's LE strength is hip musculature R 4+/5, L 4/5, knee musculature R 4+/5, L quadriceps 4+/5, hamstrings 4/5, ankle musculature 4+ to 5/5.) - Bed Mobility Needs Assist (Moderate to maximal PA to lift LE's with sit to supine, independent with upper body. The patient was able to scoot himself up in bed with use of trapeze independently.) - Transfers Needs Assist (Maximal PA of 2 with sit to stand transfer. The patient acheived chair to bed pivot transfer with use of standard walker with CG of 1, supervision of 1 for safety.) - Balance Balance Sitting: Fair (The patient was able to sit unsupported.) Balance Standing: Poor (The patient required support of walker and maximal verbal cues to stand tall.) - Gait Detail (The patient ambulated with standard walker a 2 to 3 steps with pivot turn with CG of 1.) Therapy Assessment - Therapy Assessment Detail (The patient requires assistance with all mobility and ambulation, has decreased LE strength and decreased ability to complete sustained physical activity. Feel the patient would benefit from subacute rehabilitation to increase patient's independence with ambulation, transfers and bed mobility.) Problem List - Problem List Physical Therapy Problem List: Detail (1) Assistance with transfers and bed mobility 2) Decreased ambulation distance 3) Decreased LE strength 4) Decreased ability to complete sustained physical activity) Goals - Goals Physical Therapy Goals: 1) The patient will ambulate with assistive device with supervison 50-75 feet. 2) Minimal PA of 1 with sit to and from stand transfer from higher surface. 3) Independent bed mobility. 4) Increase LE strength 1/3 to 1 full muscle grade. 5) The patient will tolerate 20 to 30 minutes of physical activity with one to two rest periods. Prognosis - Prognosis Moderate Plan - Plan Physical Therapy Plan: PT 1 time a day for bed mobility, transfer training, LE strengthening exercises and gait training.
--- NOTE | 2017-06-02 11:01 | Physician Progress Note ---
Subjective - Date Date of Physician Progress Note: 06/02/17 - Subjective Subjective Comment: sitting up in bed comfortably. states he slept well. tolerating diet. normal function. +flatulence. no stool. denies fever, chills, n/v, abd pain, productive cough. states he continues to have some low back pain since fall. denies any pain down his extremities. LE weakness is chronic and unchanged. patient will be evaluated by PT/OT today. Objective - Vital Signs Vital Signs: Vital Signs - Last 24 Hrs Temp Pulse Pulse Resp BP Pulse Ox 06/02/17 06:00 97.9 F 46 L 20 128/68 97 06/01/17 21:00 64 20 06/01/17 20:13 55 L 16 96 06/01/17 20:00 98.5 F 62 20 126/60 97 06/01/17 14:01 97.6 F 51 L 18 122/58 97 - General General Appearance: Alert, Oriented x3, Cooperative, No acute distress Limitations: Physical limitation - Head Head exam: Atraumatic, Normocephalic, Normal inspection - Eye Eye exam: Normal appearance, PERRL, EOMI Pupils: Normal accommodation - ENT ENT exam: Normal exam, Mucous membranes moist, Normal external ear exam, Normal orophraynx Ear exam: Normal external inspection. negative: External canal tenderness Nasal Exam: Normal inspection. negative: Discharge, Sinus tenderness Mouth exam: Normal external inspection, Tongue normal Teeth exam: Normal inspection. negative: Dental caries Throat exam: Normal inspection. negative: Tonsillar erythema, Tonsillar exudate - Neck Neck exam: Normal inspection, Full ROM. negative: Tenderness - Respiratory Respiratory exam: Normal lung sounds bilaterally. negative: Respiratory distress - Cardiovascular Cardiovascular Exam: Regular rate, Normal rhythm, Normal heart sounds - GI/Abdominal GI/Abdominal exam: Soft, Normal bowel sounds. negative: Tenderness - Rectal Rectal exam: Deferred - exam: Deferred - Extremities Extremities exam: Normal inspection, Full ROM, Normal capillary refill. negative: Tenderness - Back Back exam: Reports: Normal inspection. Denies: CVA tenderness (R), CVA tenderness (L), Muscle spasm, Paraspinal tenderness, Rash noted, Tenderness - Neurological Neurological exam: Alert, CN II-XII intact, Normal gait, Oriented X3 - Psychiatric Psychiatric exam: Normal affect, Normal mood - Skin Skin exam: Dry, Intact, Normal color, Warm Assessment and Plan - Assessment and Plan (1) UTI (urinary tract infection) Current Visit: Yes Status: Acute Qualifiers: Urinary tract infection type: urethritis Qualified Code(s): N34.2 - Other urethritis Base Code: N39.0 - URINARY TRACT INFECTION, SITE NOT SPECIFIED Comment: : UA: mod leuks, blood, 2+ bacteria - afebrile - wbc normal - urine culture pending - IVF - PO Cipro (2) Severe muscle deconditioning Current Visit: Yes Status: Acute Base Code: R29.898 - OTH SYMPTOMS AND SIGNS INVOLVING THE MUSCULOSKELETAL SYSTEM Comment: 06/02/17- lack of phy activity vs. infection vs. other? - Transition to PO Cipro for UTI - Urine culture pending - PT/OT eval - IVF to help with re hydration - creatine kinase improving - social work consult- determine proper placement for patient- [facility] vs. LTC. (3) Frequent falls Current Visit: Yes Status: Acute Base Code: R29.6 - REPEATED FALLS Comment : 06/02/17: Infection vs. muslce deconditioning vs. other? - Will transition to PO Cipro for UTI - Urine culture pending - PT/OT eval - IVF @ 50 mls/hr to help with re hydration (4) Diabetes Current Visit: Yes Status: Acute Base Code: E11.9 - TYPE 2 DIABETES MELLITUS WITHOUT COMPLICATIONS Comment: 06/02/17- continue home meds - monitor BS prior to meals (5) DNR (do not resuscitate) Current Visit: Yes Status: Acute Base Code: Z66 - DO NOT RESUSCITATE Comment: 06/02/17- pt is DNR (6) DVT prophylaxis Current Visit: Yes Status: Acute Base Code: [id number] - Comment: 06/02/17- low-mod risk. SCD's WIB Results - Labs Result Diagrams: 06/01/17 06:15 05/31/17 13:55 Labs Last 24 Hours: Laboratory Results - last 24 hr 06/01/17 06/01/17 06/01/17 07:00 12:08 17:00 POC Glucose Cancelled 171 H 154 H Creatine Kinase 06/02/17 07:20 POC Glucose Creatine Kinase 321 H DVT/PE Assessment - Risk for VTE Risk for VTE: No Risk Level: Moderate Risk Assessment Date: 06/01/17 Risk Assessment Time: 09:00 VTE Orders Placed or Will Be Placed: Yes - Active Medicaitons Current Medications: Current Medications Acetaminophen (Tylenol 500mg Tab) 1,000 mg PO Q6H PRN PRN Reason: PAIN/TEMP Last Admin: 06/02/17 05:07 Dose: 1,000 mg Ciprofloxacin (Cipro) 500 mg PO BIDFLUOR [facility] Sodium Chloride () 1,000 mls @ 50 mls/hr IV .Q20H PRN PRN Reason: LARGE VOLUME IV Last Admin: 06/01/17 15:32 Dose: 50 mls/hr Lisinopril (Zestril) 2.5 mg PO DAILY [facility] Last Admin: 06/01/17 09:05 Dose: 2.5 mg Metformin HCl (Glucophage Ir) 500 mg PO DAILYWM [facility] Last Admin: 06/02/17 09:36 Dose: 500 mg Metoprolol Tartrate (Lopressor) 25 mg PO DAILY [facility] Last Admin: 06/01/17 09:06 Dose: 25 mg Patient Own Med: (Lovastatin 20 Mg) 1 each PO QHS [facility] Simethicone (Mylicon) 40 mg PO QID [facility] Last Admin: 06/01/17 22:17 Dose: Not Given AMI Plan - Labs Result Diagrams: 06/01/17 06:15 05/31/17 13:55
[2017-06-02] MEDS ORDERED: 0.9 % SODIUM CHLORIDE 500ML 500 ML IV SCH (15:45)
[2017-06-02] MEDS: CIPROFLOXACIN HCL 500 MG TABLET PO SCH (19:08)
--- NOTE | 2017-06-02 21:23 | RADIOLOGY REPORT ---
EXAM: CHEST AP or PA ONLY HISTORY: LONG-TERM CARE PLACEMENT. TECHNIQUE: A single mobile semi-erect view of the chest is obtained. COMPARISON: Two-view chest radiographic examination dated 06/18/11. CT abdomen and pelvis without contrast dated 01/02/17. FINDINGS: The examination is mildly limited by under-penetration at the level of the left hemithorax base, as the patient is right anteriorly obliqued positioned. The heart is likely mildly enlarged without pulmonary venous hypertension. The thoracic aorta is tortuous and atherosclerotic. No definite lung consolidation, gross costophrenic angle blunting, or pneumothorax is seen. There are degenerative changes of the visualized spine and shoulder girdles. IMPRESSION: 1. LIMITED PORTABLE EXAMINATION WITH THE PATIENT OBLIQUELY POSITIONED. 2. PROBABLE MILD CARDIOMEGALY WITHOUT PULMONARY VENOUS HYPERTENSION. TORTUOUS ATHEROSCLEROTIC THORACIC AORTA. NO DEFINITE EVIDENCE OF AN ACUTE CARDIOPULMONARY PROCESS, THOUGH EVALUATION OF THE LEFT BASE IS LIMITED BY UNDER- PENETRATION. JOB NUMBER: [id number] MTDD
[2017-06-02] MEDS ORDERED: PATIENT OWN MED: LOVASTATIN 20 MG PO SCH (22:00)
[2017-06-03] MEDS: CIPROFLOXACIN HCL 500 MG TABLET PO SCH (05:42)
[2017-06-03] MEDS: ACETAMINOPHEN 500 MG TABLET PO PRN ×2 (05:42→12:01)
[2017-06-03] MEDS: SIMETHICONE 80 MG TAB.CHEW PO SCH (09:09)
[2017-06-03] MEDS: LISINOPRIL 5 MG TABLET PO SCH (09:09)
[2017-06-03] MEDS: METFORMIN 500 MG TABLET PO SCH (09:09)
[2017-06-03] MEDS: METOPROLOL TART 25 MG TABLET PO SCH (09:09)
[2017-06-03] MEDS ORDERED: SODIUM CHLORIDE 0.9% 500 ML IV SCH (10:00)
--- NOTE | 2017-06-03 12:51 | Discharge Summary ---
Providers Discharge Summary Date: 06/03/17 Date of admission: 05/31/17 19:02 Expected Date of Discharge: 06/03/17 Attending physician: CODY JACKSON Primary care physician: DEION BALDERRAMA D.O. Consults: Consult Orders 05/31/17 19:29 [employer] [Consult - Case Management] Now Comment: Reason For Exam: placement Physical Exam - Vital Signs Vital Signs: Vital Signs - Last 24 Hrs Temp Pulse Resp BP Pulse Ox 06/03/17 09:39 99.1 F 79 18 120/54 96 06/03/17 09:00 18 06/03/17 06:00 96 06/03/17 05:00 98.8 F 50 L 18 132/70 98 06/02/17 22:52 97.8 F 50 L 20 134/56 96 06/02/17 21:00 60 20 06/02/17 20:20 97 06/02/17 14:05 97.8 F 62 19 128/67 99 - General General Appearance: Alert, Oriented x3, Cooperative, No acute distress Limitations: Physical limitation - Head Head exam: Atraumatic, Normocephalic, Normal inspection - Eye Eye exam: Normal appearance, PERRL, EOMI Pupils: Normal accommodation - ENT ENT exam: Normal exam, Mucous membranes moist Ear exam: negative: External canal tenderness Nasal Exam: negative: Discharge, Sinus tenderness Mouth exam: Normal external inspection Teeth exam: Normal inspection. negative: Dental caries Throat exam: negative: Tonsillar erythema, Tonsillar exudate - Neck Neck exam: Normal inspection, Full ROM. negative: Tenderness - Respiratory Respiratory exam: Normal lung sounds bilaterally. negative: Respiratory distress - Cardiovascular Cardiovascular Exam: Regular rate, Normal rhythm, Normal heart sounds - GI/Abdominal GI/Abdominal exam: Soft, Normal bowel sounds. negative: Tenderness - Rectal Rectal exam: Deferred - exam: Deferred - Extremities Extremities exam: Normal inspection, Full ROM, Normal capillary refill. negative: Tenderness - Back Back exam: Reports: Normal inspection. Denies: CVA tenderness (R), CVA tenderness (L), Muscle spasm, Paraspinal tenderness, Rash noted, Tenderness - Neurological Neurological exam: Alert, CN II-XII intact, Normal gait, Oriented X3 - Psychiatric Psychiatric exam: Normal affect, Normal mood - Skin Skin exam: Dry, Intact, Normal color, Warm Hospitalization - Hospitalization Admission Diagnosis: uti, frequent falls, severe deconditioning - Problem List/Discharge Diagnosis (1) Diabetes Current Visit: Yes Status: Acute Base Code: E11.9 - TYPE 2 DIABETES MELLITUS WITHOUT COMPLICATIONS Comment: 06/03/17- continue home meds - monitor BS prior to meals - blood sugars remained stable during hospitalization (2) Frequent falls Current Visit: Yes Status: Acute Base Code: R29.6 - REPEATED FALLS Comment : 06/03/17: Infection vs. muslce deconditioning vs. other? - Tolerating Cipro PO, will complete total of 10 day course - Urine culture pending - PT/OT eval at [facility] (3) Severe muscle deconditioning Current Visit: Yes Status: Acute Base Code: R29.898 - OT SYMPTOMS AND SIGNS INVOLVING THE MUSCULOSKELETAL SYSTEM Comment: 06/03/17: Infection vs. muslce deconditioning vs. other? - Tolerating Cipro PO, will complete total of 10 day course - Urine culture pending - PT/OT eval at [facility] (4) UTI (urinary tract infection) Current Visit: Yes Status: Acute Discharge Diagnosis: Urinary tract infection type: urethritis Qualified Code(s): N34.2 - Other urethritis Base Code: N39.0 - URINARY TRACT INFECTION, SITE NOT SPECIFIED Comment: : UA: mod leuks, blood, 2+ bacteria - afebrile - wbc normal - urine culture pending - asymptomatic at time of discharge (5) UTI (urinary tract infection) Current Visit: No Status: Acute Discharge Diagnosis: Urinary tract infection type: site unspecified Hematuria presence: with hematuria Qualified Code(s): N39.0 - Urinary tract infection, site not specified; R31.9 - Hematuria, unspecified Base Code: N39.0 - URINARY TRACT INFECTION, SITE NOT SPECIFIED (6) DNR (do not resuscitate) Current Visit: Yes Status: Acute Base Code: Z66 - DO NOT RESUSCITATE Comment: 06/03/17- pt is DNR (7) DVT prophylaxis Current Visit: Yes Status: Acute Base Code: [id number] - Comment: 06/03/17- low-mod risk. SCD's WIB - Hospitalization Course Disposition: Inpatient Rehab Facility Hospital Course: 71 yo male admitted for deconditioning and UTI. PMHx of frequent falls, type 2 DM, HTN, h/o renal stones, and obesity. Patient presented to our ED by EMS after a fall at home. States he stood up to walk from the kitchen to the living room. He began to feel dizzy and fell side ways. He states his sister had come over and contacted EMS. Upon presentation , VSS. WBC 14.2, neut 81, glucose 137, creatine kinase 898. UA: + blood, mod leuks, 2+ bacteria. Urine culture pending. Hip xray: NAP. Patient was started on IVFs and IV Cipro for UTI. Admitted for further medical management. 06/01/17- History obtained from patient who is A&O to person, place and date. He states he feels well this morning. Continues to feel pretty weak. Denies dizziness, lightheadedness, fever, chills, cough, dysuria, abdominal pain, constipation, diarrhea, joint pain, headache, cp, sob, or decreased appetite. He admits to some LBP since his fall, though states he typically has some of this. He's tolerating meals. States he's using the urinal as he's not strong enough to ambulate to the rest room. Typically uses a walker at home. Has had [employer] services, though nursing states patient failed this as he was not participating. Patient lives alone though it sounds like he has a very supportive family. He reports h/o renal stones, s/p lithotripsy x 5. Dr. Negron is his urologist. Patient is retired. Denies any recent hospitalizations. According to nursing staff, family is interested in senior living care facility for patient. 06/03/17- hospital course unremarkable, responded well to IV and subsequently to PO Cipro. Remained afebrile. PT/OT consulted and working with patient towards strengthening and improved weakness. Urine culture pending. Patient reports history of MRSA. MRSA PCR positive. Discharged in stable condition PCP: Dr. Balderrama Procedures: Imaging and X-Rays 06/02/17 08:55 CHEST AP or PA ONLY [RAD] Stat Abnormal Labs: Abnormal Lab Results 06/01/17 06/01/17 06/01/17 Range/Units 06:15 06:15 10:30 RBC 4.05 L (4.40-5.70) M/uL Hgb 11.4 L (14.0-18.0) gm/dl Hct 34.3 L (42.0-52.0) % MPV 10.6 H (7.4-10.4) fl Monocytes % 10.0 H (0-9) % POC Glucose (70-110) mg/dL Creatine Kinase 663 H (55-170) U/L MRSA Culture Detected H (Not Detected) 06/01/17 06/01/17 06/02/17 Range/Units 12:08 17:00 07:20 RBC (4.40-5.70) M/uL Hgb (14.0-18.0) gm/dl Hct (42.0-52.0) % MPV (7.4-10.4) fl Monocytes % (0-9) % POC Glucose 171 H 154 H (70-110) mg/dL Creatine Kinase 321 H (55-170) U/L MRSA Culture (Not Detected) 06/02/17 06/02/17 06/03/17 Range/Units 11:45 17:17 07:30 RBC (4.40-5.70) M/uL Hgb (14.0-18.0) gm/dl Hct (42.0-52.0) % MPV (7.4-10.4) fl Monocytes % (0-9) % POC Glucose 146 H 120 H 131 H (70-110) mg/dL Creatine Kinase (55-170) U/L MRSA Culture (Not Detected) 06/03/17 Range/Units 11:30 RBC (4.40-5.70) M/uL Hgb (14.0-18.0) gm/dl Hct (42.0-52.0) % MPV (7.4-10.4) fl Monocytes % (0-9) % POC Glucose 115 H (70-110) mg/dL Creatine Kinase (55-170) U/L MRSA Culture (Not Detected) Condition at Discharge: (2) Stable Discharge Medications - Discharge Medications Home Medications: Ambulatory Orders Metformin HCl [Glucophage] 500 mg PO DAILY 02/17/15 [Last Taken 1 Day Ago ~05/30] Lisinopril 2.5 mg PO DAILY 01/02/17 [Last Taken 1 Day Ago ~05/30/17] Lovastatin 10 mg PO DAILY 01/02/17 [Last Taken 1 Day Ago ~05/30/17] Metoprolol Tartrate 25 mg PO DAILY 01/02/17 [Last Taken 1 Day Ago ~05/30/17] Acetaminophen [Tylenol 500Mg Tab] 1,000 mg PO Q6H PRN 06/03/17 [Last Taken Unknown] Ciprofloxacin HCl [Cipro] 500 mg PO BIDFLUOR 9 Days 06/03/17 [Last Taken Unknown ] Discharge Plan - Discharge Instructions Activity at Discharge: As Per Physical Therapy Diet at Discharge: Diabetic Diet Quality Measures - Quality Measures Quality Measures: Advance Directives, Documentation of Current Medications in Medical Record, Elder Maltreatment Screen and Follow-Up Plan, Screening for High Blood Pressure and F/U Documented - Current Medications Quality Measure: Measure #130: Documentation of Current Medications Documentation of Current Medications: <Current Medications Documented/Reviewed> [G8427] - Blood Pressure Screening Quality Measure: Screening for High Blood Pressure and Follow-Up Documented Does Patient Have Any of the Following: No Blood Pressure Classification: Hypertensive Reading Systolic Measurement: 141 Diastolic Measurement: 72 Screening for High Blood Pressure: < Normal BP, F/U Not Required > [G8783] - Advance Directives Quality Measure: Measure #47: Care Plan Advance Directives Established: No Advance Directives Information Provided To Patient: Already Provided Advance Directives on File: No Living Will: No Power of Machine Setter And Repairer: No Advance Care Planning: <Care Plan/Decision Maker Documented; Discussed & Documented> [1123F] - Elder Abuse Suspicion Index Screening: Elder Abuse Suspicion Index Screening Screening Result: Negative result EASI Reference Information: Yesenia ROWAN, Patsy C, Anel D, Hillary Francis.Development and validation of a tool to assist physicians identification of elder abuse: The Elder Abuse Suspicion Index (EASI ). Journal of Elder Abuse and Neglect, 2008; 20 (3): 276-300. - Elder Maltreatment Screen Quality Measures: Elder Maltreatment Screen and Follow-Up Plan Elder Maltreatment Screen: <Negative, No Follow-Up Plan Required> [G8734]
== END 2017-06-03 15:00 ==
LOC: ER 14:08 → INTOOBSV 19:02 → MEDSURG 19:02
PROVIDERS: ADMIT Family Medicine; ATTEND Family Medicine
DX: N39.0 Urinary tract infection, site not specified (principal); E11.9 Type 2 diabetes mellitus without complications; Z79.84 Long term (current) use of oral hypoglycemic drugs; I10 Essential (primary) hypertension; R29.898 Other symptoms and signs involving the musculoskeletal system; Z66 Do not resuscitate; Z91.81 History of falling
CPT/HCPCS: 99285 ×2; 94760 ×2; 96365; 82550 ×3; 85025; 80053; 36416 ×4; 81001; 82948 ×4; 85027; 71010; 73502; 90686; G0378 ×4; J0744 ×3; G8978; G8979 ×2; G8980; G8987; G8988; G8989; 97165; 97530; 99217; 99220; 99225; J7040